=== PATIENT | female | born 1985 | race Caucasian/White ===

== ENCOUNTER → 2021-09-15 17:42 | Outpatient (CLI) | payer BC, SELFPAY | PROVIDERS: PCP Nurse Practitioner Family; Visit Provider Nurse Practitioner | DX: U07.1 COVID-19 (principal) | CPT/HCPCS: C9803; U0003; U0005 ==

== ENCOUNTER → 2021-10-15 16:09 | Outpatient (CLI) | payer BC, SELFPAY ==
[2021-10-15 17:06] LABS: HCG,Quantitative 132 mIU/ml (0-5.42)
== END ==
PROVIDERS: Visit Provider Nurse Practitioner Women's Health
DX: Z32.00 Encounter for pregnancy test, result unknown (principal)
CPT/HCPCS: 36415; 84702

== ENCOUNTER → 2021-10-29 15:56 | Outpatient (CLI) | payer BC, SELFPAY ==
[2021-10-29 17:16] LABS: HCG,Quantitative 109 mIU/ml (0-5.42)
== END ==
PROVIDERS: Visit Provider Nurse Practitioner Women's Health
DX: Z32.00 Encounter for pregnancy test, result unknown
CPT/HCPCS: 36415; 84702

== ENCOUNTER 2023-01-02 14:51 | Outpatient (CLI) | payer BC, SELFPAY ==
[2023-01-02 15:58] VITALS: BMI 30.4
[2023-01-02 16:01] VITALS: BP 103/74; PULSE 75; RESP 16; TEMP 36.8; O2SAT 100; BMI 28.5
[2023-01-02 16:09] LABS: Microscopic, Urine URINE MICROSCOPIC (MICROSCOPIC)
[2023-01-02 16:13] LABS: Appearance,Urine CLEAR (Clear); Bilirubin,Urine Negative (Negative); Blood, Urine Negative (Negative); Color,Urine YELLOW (Yellow); Glucose,Urine (UA) Negative (Negative); Ketones,Urine 3+ (Negative); Leukocyte Esterase,Urine Negative (Negative); Nitrate,Urine Negative (Negative); Protein,Urine Negative (Negative); Specific Gravity, Urine 1.025 (1.005-1.030); Urobilinogen,Urine 0.2 EU/dl (0.2)
[2023-01-02 16:26] LABS: Barbiturates Screen,Urine Negative ng/ml (<200); Benzodiazepines Screen,Urine Negative ng/ml (<200)
[2023-01-02 16:27] LABS: Amphetamine/Metha Screen,Urine Negative ng/ml (<1000)
[2023-01-02 16:28] LABS: Cannabinoid Screen,Urine Negative ng/ml (<50); Cocaine Screen,Urine Negative ng/ml (<300)
[2023-01-02 16:29] LABS: Methadone Screen,Urine Negative ng/ml (<300); Opiate Screen,Urine Negative ng/ml (<300); RBC,Urine Occasional #/hpf (0-3)
[2023-01-02 16:30] LABS: Phencyclidine Screen,Urine Negative ng/ml (<25)
== END 2023-01-02 17:17 | disposition home or self-care (01) ==
LOC: OBOUT 14:57 → OB 14:57
PROVIDERS: PCP Nurse Practitioner Family; Visit Provider Obstetrics & Gynecology
DX: O36.8130 Decreased fetal movements, third trimester, not applicable or unspecified (principal); Z3A.36 36 weeks gestation of pregnancy
CPT/HCPCS: 59025; 80305; 81001; 96365; G0463